=== PATIENT | female | born 1965 | race Caucasian/White ===

== ENCOUNTER 2019-01-03 18:43 | Emergency (ER) | payer OTHER, SELFPAY ==
[2019-01-03 18:44] VITALS: BP 142/84; PULSE 79; RESP 16; TEMP 36.4; O2SAT 100; BMI 29.8
--- NOTE | 2019-01-03 19:00 | ED.VIS.GEN ---
History of Present Illness Chief Complaint: Headache Informant: Patient Onset: Today Narrative: Headache since 11 AM this morning. No fevers. No recent falls or head injuries. No aura sensations. Photo phonophobia. Nausea without vomiting. No vision changes. Similar symptoms 10 years ago with migraines. No increased stress. 2 Tylenol doses with no relief. No history of gastric ulcers or kidney injury. No recent travel. Prior similar symptoms: Yes Past Medical History - Allergies and Home Meds Allergies/Adverse Reactions: Allergies Penicillins Allergy (Verified 01/22/16 13:51) Anaphylaxis prochlorperazine [From Compazine] Allergy (Verified 01/22/16 13:51) Other prochlorperazine edisylate [From Compazine] Allergy (Verified 01/22/16 13:51) Other prochlorperazine maleate [From Compazine] Allergy (Verified 01/22/16 13:51) Other Primary Care Physician: Iain Lafleur MD [STAFF PHYSICIAN] - Smoking Status: Current every day smoker Review of Systems General: Denies: Chills, Fever, Sweats Eyes: Denies: Visual changes - bilaterally, Diplopia ENT: Denies: Rhinorrhea, Sore throat Cardiovascular: Denies: Chest pain, Palpitations Respiratory: Denies: Dyspnea, Cough, Dyspnea on exertion Gastrointestinal: Reports: Nausea. Denies: Abdominal pain, Vomiting, Diarrhea, Melena, Hematochezia Genitourinary: Denies: Dysuria, Hematuria, Frequency Musculoskeletal: Denies: Neck pain, Back pain, Extremity Pain Skin: Denies: Rash, Wounds Neurological: Reports: Headache. Denies: Weakness, Numbness Physical Exam Vital Signs/Narrative: Vital Signs Temp Pulse Resp BP Pulse Ox 01/03/19 18:44 97.6 F L 79 16 142/84 H 100 Inital Vital Signs reviewed: Yes General: Well nourished, Well developed, - - Comfortable, rag over her eyes. Head: Normocephalic, Atraumatic Eyes: Perrl, EOMI ENT: Moist mucous membranes, No rhinorrhea Neck: Supple, Nontender, - - No meningismus Cardiovascular: Regular rate, Regular rhythm, No murmurs Respiratory: No distress, CTA bilaterally, Chest nontender Abdomen: Soft, Nontender, Nondistended, Normal bowel sounds Back: Nontender, Normal Inspection Extremities: Nontender, No edema Skin: Normal color, No rash Neurological: Alert, Oriented x3, Cranial nerves II-XII grossly intact, Normal Strength, Normal Sensation Psychological: Normal affect, Normal Mood Diagnostic/Tx/Re-eval - Medical Decision Making Patient no focal neurologic deficits. Vitals stable. Treated migraine cocktail with Reglan, Benadryl, Toradol, reevaluation improvement of symptoms. Discharged with outpatient follow-up. ED Disposition - Plan for ED Patient: Disposition: Home or Assisted Living Diagnosis: Migraine headache without aura Instructions: ED Headache Migraine Referrals: Iain Lafleur MD [STAFF PHYSICIAN] - 3-5 Days
[2019-01-03] MEDS: 0.9% Normal Saline 1,000 ML 999 ML IV (19:10)
[2019-01-03] MEDS: DiphenhydrAMINE 50 MG/ML Syringe 25 MG IV (19:11)
[2019-01-03] MEDS: Metoclopramide 10 MG/2 ML Vial IV (19:12)
[2019-01-03] MEDS: Ketorolac 30 MG/ML Syringe IV (19:13)
== END 2019-01-03 20:06 | disposition home or self-care (01) ==
PROVIDERS: Emergency Provider Emergency Medicine
DX: G43.009 Migraine without aura, not intractable, without status migrainosus (principal); F17.200 Nicotine dependence, unspecified, uncomplicated
CPT/HCPCS: 96361; 96374; 96375; 99283; J7030